=== PATIENT | female | born 1960 | race African-American/Black ===

== ENCOUNTER → 2023-07-26 | Emergency (ER) | payer OTHER ==
[~2023-07-26] MED LIST: AMOX/K CLAV 875 MG TAB ONE; CEFTRIAXONE 1000 MG/VIAL ONE; HYDROCODONE/APAP 10/325 TAB ONE; LIDOCAINE 1% MPF 2 ML AMPULE ONE; dexAMETHasone 10 MG/ML VIAL ONE
--- OUTSIDE RECORDS SUMMARY | 2023-07-26 19:27 | XMS REPORT | Clinical Summary ---
Author Name Unknown Organization [facility] [place] Address [address] [place] [address] Care Team Providers Care Film Technician Name Role Phone Ana Luisa Soares MD Primary Care Provider [phone] Allergies No known active allergies Medications Medication Sig Dispensed Refills Start Date End Date Status albuterol (VENTOLIN HFA,PROAIR HFA) 90 mcg/puff inhaler INHALE 2 PUFFS BY MOUTH EVERY 4 TO 6 HOURS NEEDED 0 09/13/2019 Active benzonatate (TESSALON) 100 mg capsule TAKE 1 TO 2 CAPSULES BY MOUTH EVERY 8 HOURS NEEDED FOR COUGH 0 07/28/2019 Active bisoprolol (ZEBETA) 5 mg tablet TAKE 1 TABLET BY MOUTH ONCE DAILY 0 02/05/2020 Active brompheniramine-pseud oephedrine-DM 2-30-10 mg/5 mL syrup TAKE 10 ML BY MOUTH EVERY 4 HOURS NEEDED NOT TO EXCEED 6 DOSES PER DAY 0 07/28/2019 Active cyclobenzaprine (FLEXERIL) 10 mg tablet TAKE 1 TABLET BY MOUTH THREE TIMES DAILY NEEDED SPASMS 0 01/08/2020 Active fluticasone propionate (FLONASE) 50 mcg/spray nasal spray USE 2 SPRAY(S) IN EACH NOSTRIL ONCE DAILY 0 09/13/2019 Active meclizine (ANTIVERT) 32 MG tablet Chew 25 mg. 0 Active Surgical History Surgery Date Site/Laterality Comments APPENDECTOMY 06/30/1981 - 06/29/1982 Removed appendix during hysterectomy HYSTERECTOMY 06/30/1981 - 06/29/1982 Had fibroid cyst, 1st stage of endometriosis Medical History Medical History Date Comments Hypertension Hyperlipidemia Not sure within the last few years but no meds given. Migraine Not sure! Not th at often. Sinusitis Not sure its bee n years. Gastric reflux Not sure maybe 2 012 History of recurrent urinary tract infection Really not sure. Endometriosis 1981 Had a hysterecto my during this time. Gout 2018 Never had any sy mptoms acidic levels was high never took med Disorder of thyroid gland I have 2 nodules on one side 3 on the other. 3-5 centimeters Anxiety Not sure off and on for years. Social History Tobacco Use Types Packs/Day Years Used Date Smoking Tobacco: Never Assessed Cigarettes 0 0 Smokeless Tobacco: Never Alcohol Use Standard Drinks/Week Comments Never 0 (1 standard drink = 0.6 oz pur e alcohol) Sex and Gender Information Value Date Recorded Sex Assigned at Not on file Gender Identity Not on file Sexual Orientation Not on file Job Start Date Occupation Industry Not on file Not on file Not on file Obstetrics History Plan of Treatment Health Maintenance Due Date Last Done Comments COVID-19 Vaccination (#1) 1960 Care Teams Film Technician Relationship Specialty Start Date End Date Ana Luisa Soares MD [address] [place] [address] PCP - General Surgical Oncology 06/27/20
[2023-07-26 21:03] LABS: SARS-COV-2 RT PCR NEGATIVE (NEGATIVE)
--- NOTE | 2023-07-26 22:15 | ER ---
Nurse's Notes [facility] Name: Helga Moseley Age: 63 yrs Sex: Female : 1960 Arrival Date: 07/26/2023 Time: 19:25 Bed 9 Private MD: Diagnosis: Allergic rhinitis, unspecified;Acute serous otitis media, right ear;Nasal congestion Presentation: 07/26 19:59 Chief complaint: Patient states: I have a really bad nasal congestion and pain on the ha1 right ear. Coronavirus screen: Vaccine status: Patient reports receiving the 2nd dose of the covid vaccine. Moderna. Ebola Screen: No symptoms or risks identified at this time. Initial Sepsis Screen: Does the patient meet any 2 criteria? No. Patient's initial sepsis screen is negative. Does the patient have a suspected source of infection? No. Patient's initial sepsis screen is negative. Risk Assessment: Do you want to hurt yourself or someone else? Patient reports no desire to harm self or others. Onset of symptoms was July 26, 2023. 19:59 Method Of Arrival: Ambulatory ha1 19:59 Acuity: ZULEYKA 3 ha1 Triage Assessment: 20:01 General: Appears uncomfortable, Behavior is cooperative. Pain: Complains of pain in ha1 right ear Pain does not radiate. Pain currently is 8 out of 10 on a pain scale. Neuro: Level of Consciousness is awake, alert, obeys commands, Oriented to person, place, time, situation. Cardiovascular: Patient's skin is warm and dry. Respiratory: Airway is patent Respiratory effort is even, unlabored, Respiratory pattern is regular, symmetrical. Historical: - Allergies: 20:01 No Known Allergies; ha1 - PMHx: 20:01 None; ha1 - Immunization history:: Adult Immunizations up to date. - Social history:: Smoking status: Patient denies any tobacco usage or history of. Screenin:13 [facility] ED Fall Risk Assessment (Adult) Score/Fall Risk Level 0 - 2 = Low Risk. Abuse as6 screen: Denies threats or abuse. Denies injuries from another. Nutritional screening: No deficits noted. Tuberculosis screening: No symptoms or risk factors identified. Assessment: 20:40 Reassessment: Pt family member came out of room asking if someone is going to come in vc1 the patients room. Asked if there was something needed and family member states, "no I just want to know if a nurse is going to come in and see her or not." Informed family member that the nurse will be there shortly. Nurse states that she has has already been in the room and swabbed the patient and a second time to bring water. We are waiting on results for the swabs. Vital Signs: 19:59 BP 160 / 92; Pulse 100; Resp 18 S; Temp 98.4(O); Pulse Ox 97% on R/A; Weight 113.4 kg; ha1 Height 5 ft. 6 in. ; 22:24 BP 148 / 70; Pulse 87; Resp 16; Pulse Ox 96% ; as6 19:59 Body Mass Index 40.35 (113.40 kg, 167.64 cm) ha1 ED Course: 19:40 Patient arrived in ED. jj6 19:58 Donte Chand MD is Attending Physician. dexter 20:01 Aaron Donaldson, MESERET is Primary Nurse. as6 20:01 Triage completed. ha1 20:13 COVID-19/FLU A+B/RSV Sent. as6 20:13 Arm band placed on. as6 20:13 Bed in low position. Call light in reach. PO fluids given. as6 22:14 Marizol Cotton MD is Referral Physician. [facility] 22:25 No provider procedures requiring assistance completed. Patient did not have IV access as6 during this emergency room visit. 22:25 Provided Education on: rx teaching. as6 Administered Medications: 22:03 Drug: Dexamethasone IM 10 mg IM once Route: IM; Site: left deltoid; as6 22:25 Follow up: Response: No adverse reaction as6 22:03 Drug: Rocephin (cefTRIAXone) IM 1 grams IM once Route: IM; Site: left ventrogluteal; as6 22:25 Follow up: Response: No adverse reaction as6 22:03 Drug: Amoxicillin-Clavulanate PO 875 mg PO once Route: PO; as6 22:25 Follow up: Response: No adverse reaction as6 22:03 Drug: [place] PO 10 mg-325 mg 1 tabs PO once Route: PO; as6 22:25 Follow up: Response: No adverse reaction as6 Medication: 20:14 VIS not applicable for this client. as6 Outcome: 22:15 Discharge ordered by . dexter 22:25 Discharged to home ambulatory, with family, as6 22:25 Condition: good 22:25 Discharge instructions given to patient, Instructed on discharge instructions, follow up and referral plans. medication usage, Demonstrated understanding of instructions, follow-up care, medications, Prescriptions given X 5 22:26 Patient left the ED. as6 Signatures: Donte Chand MD MD cha Jeffries, Jennifer jj6 Aaron Donaldson RN RN as6 Lourdes Muniz RN RN vc1 Michelle Anderson RN RN ha1 Corrections: (The following items were deleted from the chart) 20:49 20:44 Reassessment: Pt family member came out of room asking if someone is going to vc1 come in the patients room. Asked if there was something needed and family member states, "no I just want to know if a nurse is going to come in and see her or not." Informed family member that the nurse will be there shortly. Nurse states that she has has already been in vc1
--- NOTE | 2023-07-26 22:15 | EDPHYS ---
Physician Documentation [facility] Name: Helga Moseley Age: 63 yrs Sex: Female : 1960 Arrival Date: 07/26/2023 Time: 19:25 Bed 9 Private MD: ED Physician Donte Chand HPI: 07/26 22:09 This 63 yrs old Black Female presents to ER via Ambulatory with complaints of Nasal dexter Congestion. 22:09 The patient or guardian reports cough, flu symptoms, arthralgias. Onset: The dexter symptoms/episode began/occurred 3 day(s) ago. Historical: - Allergies: 20:01 No Known Allergies; ha1 - PMHx: 20:01 None; ha1 - Immunization history:: Adult Immunizations up to date. - Social history:: Smoking status: Patient denies any tobacco usage or history of. ROS: 22:10 Constitutional: Negative for fever, chills, and weight loss, Eyes: Negative for injury, dexter pain, redness, and discharge, Neck: Negative for injury, pain, and swelling, Cardiovascular: Negative for chest pain, palpitations, and edema, Respiratory: Negative for shortness of breath, cough, wheezing, and pleuritic chest pain, Abdomen/GI: Negative for abdominal pain, nausea, vomiting, diarrhea, and constipation, Back: Negative for injury and pain, : Negative for injury, bleeding, discharge, and swelling, MS/Extremity: Negative for injury and deformity, Skin: Negative for injury, rash, and discoloration, Neuro: Negative for headache, weakness, numbness, tingling, and seizure, Psych: Negative for depression, anxiety, suicide ideation, homicidal ideation, and hallucinations, Allergy/Immunology: Negative for hives, rash, and allergies, Endocrine: Negative for neck swelling, polydipsia, polyuria, polyphagia, and marked weight changes, Hematologic/Lymphatic: Negative for swollen nodes, abnormal bleeding, and unusual bruising, 22:10 Constitutional: Positive for chills, 22:10 ENT: Positive for ear pain, nasal discharge, rhinorrhea, Exam: 22:10 Constitutional: This is a well developed, well nourished patient who is awake, alert, dexter and in no acute distress. Head/Face: Normocephalic, atraumatic. Eyes: Pupils equal round and reactive to light, extra-ocular motions intact. Lids and lashes normal. Conjunctiva and sclera are non-icteric and not injected. Cornea within normal limits. Periorbital areas with no swelling, redness, or edema. Neck: Trachea midline, no thyromegaly or masses palpated, and no cervical lymphadenopathy. Supple, full range of motion without nuchal rigidity, or vertebral point tenderness. No Meningismus. Chest/axilla: Normal chest wall appearance and motion. Nontender with no deformity. No lesions are appreciated. Cardiovascular: Regular rate and rhythm with a normal S1 and S2. No gallops, murmurs, or rubs. Normal PMI, no JVD. No pulse deficits. Respiratory: Lungs have equal breath sounds bilaterally, clear to auscultation and percussion. No rales, rhonchi or wheezes noted. No increased work of breathing, no retractions or nasal flaring. Abdomen/GI: Soft, non-tender, with normal bowel sounds. No distension or tympany. No guarding or rebound. No evidence of tenderness throughout. Back: No spinal tenderness. No costovertebral tenderness. Full range of motion. Skin: Warm, dry with normal turgor. Normal color with no rashes, no lesions, and no evidence of cellulitis. MS/ Extremity: Pulses equal, no cyanosis. Neurovascular intact. Full, normal range of motion. Neuro: Awake and alert, GCS 15, oriented to person, place, time, and situation. Cranial nerves II-XII grossly intact. Motor strength 5/5 in all extremities. Sensory grossly intact. Cerebellar exam normal. Normal gait. Psych: Awake, alert, with orientation to person, place and time. Behavior, mood, and affect are within normal limits. 22:10 ENT: TM's: erythema, that is moderate, on the right, Nose: Nasal mucosa: edematous, erythematous, Turbinates: are swollen bilaterally, Mouth: is normal, no abscess, no drooling, no injury, no laceration, no lesion(s), (-) tongue elevation (-) trismus no ulcerations, no gum abnomalities, no lip abnormalities, no mucosal abnormalities, no tongue abnormalities, Oral mucosa: moist, Gums: normal with healthy appearance, Posterior pharynx: is normal, Vital Signs: 19:59 BP 160 / 92; Pulse 100; Resp 18 S; Temp 98.4(O); Pulse Ox 97% on R/A; Weight 113.4 kg; ha1 Height 5 ft. 6 in. ; 22:24 BP 148 / 70; Pulse 87; Resp 16; Pulse Ox 96% ; as6 19:59 Body Mass Index 40.35 (113.40 kg, 167.64 cm) ha1 MDM: 19:58 Patient medically screened. dexter 22:12 Differential diagnosis: sinusitis, obstructed airway, tracheal injury, bronchitis, flu, dexter URI. Antibiotic administration: The patient is discharged and will get outpatient antibiotics, Amoxicillin. Differential Diagnosis: Obstructed Airway Bronchitis Influenza Upper Respiratory Infection Sinusitis Allergic Rhinitis Viral Syndrome. Data reviewed: vital signs, nurses notes, lab test result(s). Consideration of Admission/Observation Escalation of care including admission/observation considered. I considered the following discharge prescriptions or medication management in the emergency department Medications were administered in the Emergency Department. See MAR. Test considered but Not performed: Labs: NO LABS. Historians other than the Patient: Spouse/Significant Other: WELL INFORMED. 07/26 19:59 Order name: COVID-19/FLU A+B/RSV; Complete Time: 21:28 dexter Administered Medications: 22:03 Drug: Dexamethasone IM 10 mg IM once Route: IM; Site: left deltoid; as6 22:25 Follow up: Response: No adverse reaction as6 22:03 Drug: Rocephin (cefTRIAXone) IM 1 grams IM once Route: IM; Site: left ventrogluteal; as6 22:25 Follow up: Response: No adverse reaction as6 22:03 Drug: Amoxicillin-Clavulanate PO 875 mg PO once Route: PO; as6 22:25 Follow up: Response: No adverse reaction as6 22:03 Drug: [place] PO 10 mg-325 mg 1 tabs PO once Route: PO; as6 22:25 Follow up: Response: No adverse reaction as6 Disposition Summary: 07/26/23 22:15 Discharge Ordered Notes: Location: Home dexter Problem: new dexter Symptoms: have improved dexter Condition: Stable dexter Diagnosis - Allergic rhinitis, unspecified dexter - Acute serous otitis media, right ear dexter - Nasal congestion dexter Followup: dexter - With: Private Physician - When: 2 - 3 days - Reason: Recheck today's complaints, Continuance of care, Re-evaluation by your physician Followup: dexter - With: Marizol Cotton MD - When: 2 - 3 days - Reason: Recheck today's complaints, Re-evaluation by your physician Discharge Instructions: - Discharge Summary Sheet [facility] - Otitis Media, Adult [facility] - Allergic Rhinitis, Adult [facility] - Otitis Media, Adult, [id number] dexter - Allergic Rhinitis, Adult, [id number] [facility] Forms: - Medication Reconciliation Form [facility] - Thank You Letter [facility] - Antibiotic Education [facility] - Prescription Opioid Use [facility] - Patient Portal Instructions [facility] - Leadership Thank You Letter [facility] Prescriptions: - Flonase Allergy Relief 50 mcg/actuation Nasal spray, suspension - spray 2 spray INTRANASAL route daily administer into each nostril; 1 unit; [facility] Refills: 0, Product Selection Permitted - acetaminophen-codeine 300-30 mg Oral tablet - take 2 tablet ORAL route every 6 hours; 20 tablet; Refills: 0, Product [facility] Selection Permitted - dexamethasone 2 mg Oral tablet - take 1 tablet ORAL route 2 times per day at 11 PM; 8 tablet; Refills: 0, [facility] Product Selection Permitted - Theresa-D 12 Hour 60-120 mg Oral Tablet Sustained Release 12 hr - take 1 tablet ORAL route every 12 hours As needed; 30 tablet; Refills: 0, [facility] Product Selection Permitted - Augmentin 875-125 mg Oral Tablet - take 1 tablet ORAL route every 12 hours for 10 days; 20 tablet; Refills: 0, [facility] Product Selection Permitted Signatures: Dispatcher [employer] Donte Diana MD MD cha Slawson, Ashby, RN RN as6 Michelle Anderson RN RN ha1
[2023-07-27 00:02] VITALS: BP 148/70; TEMP 98.4; O2SAT 96
== END ==
LOC: ER 19:25
DX: J30.9 Allergic rhinitis, unspecified (principal); H65.01 Acute serous otitis media, right ear; R09.81 Nasal congestion; H92.01 Otalgia, right ear; R05.9 Cough, unspecified; M25.50 Pain in unspecified joint; Z11.52 Encounter for screening for COVID-19
CPT/HCPCS: 0241U; J1100; J0696

== ENCOUNTER 2024-10-21 08:08 | Emergency (ER) | payer OTHER ==
--- OUTSIDE RECORDS SUMMARY | 2024-10-21 08:12 | XMS REPORT | Clinical Summary ---
Author Name Unknown Organization [facility] [place] Address [address] [place] [address] Care Team Providers Care Scientific Research Associate Name Role Phone Ana Luisa Soares MD Primary Care Provider [phone] Allergies No known active allergies Medications * This document contains information received from the source organization and may not represent a complete record from that organization. albuterol (VENTOLIN HFA,PROAIR HFA) 90 mcg/puff inhaler INHALE 2 PUFFS BY MOUTH EVERY 4 TO 6 HOURS NEEDED 09/13/2019 Active benzonatate (TESSALON) 100 mg capsule TAKE 1 TO 2 CAPSULES BY MOUTH EVERY 8 HOURS NEEDED FOR COUGH 07/28/2019 Active bisoprolol (ZEBETA) 5 mg tablet TAKE 1 TABLET BY MOUTH ONCE DAILY 02/05/2020 Active brompheniramine -pseudoephedrin e-DM 2-30-10 mg/5 mL syrup TAKE 10 ML BY MOUTH EVERY 4 HOURS NEEDED NOT TO EXCEED 6 DOSES PER DAY 07/28/2019 Active cyclobenzaprine (FLEXERIL) 10 mg tablet TAKE 1 TABLET BY MOUTH THREE TIMES DAILY NEEDED SPASMS 01/08/2020 Active fluticasone propionate (FLONASE) 50 mcg/spray nasal spray USE 2 SPRAY(S) IN EACH NOSTRIL ONCE DAILY 09/13/2019 Active meclizine (ANTIVERT) 32 MG tablet Chew 25 mg. Active Surgical History Surgery Date Site/Laterality Comments [...] Used Date Smoking Tobacco: Never Assessed Cigarettes Smokeless Tobacco: Never Alcohol Use Standard Drinks/Week Comments Never 0 (1 standard drink = 0.6 oz pur e alcohol) Comments Unknown Sex and Gender Information Value Date Recorded Sex Assigned at Not on file Legal Sex Female 9:47 AM WHEEL [employer] Gender Identity Not on file Sexual Orientation Not on file Obstetrics History Plan of Treatment Health Maintenance Due Date Last Done Comments Pneumococcal Vaccine: 50+ Years (1 of 1 - PCV) 008 COVID-19 Vaccine ( - 2023- season) 2024 Influenza Vaccine (#1) 2024 Care Teams Scientific Research Associate Relationship Specialty Start Date End Date Ana Luisa Soares MD [address] [place] [address] [email or web address] PCP - General Surgical Oncology 06/27/20
[2024-10-21] MEDS ORDERED: ACETAMINOPHEN 500 MG TAB ONE (08:58)
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
--- NOTE | 2024-10-21 09:02 | EDPHYS ---
Physician Documentation [facility] Name: Helga Moseley Age: 64 yrs Sex: Female : 1960 Arrival Date: 10/21/2024 Time: 08:08 Bed 12 Private MD: ED Physician Donte Chand HPI: 10/21 08:25 This 64 yrs old Black Female presents to ER via Unassigned with complaints of Head dexter Injury-Adult. 08:25 The patient or guardian reports tenderness. The complaints affect the forehead. Context dexter of injury: The problem was sustained at work. Onset: The symptoms/episode began/occurred yesterday. Associated signs and symptoms: The patient has no apparent associated signs or symptoms, Loss of consciousness: This patient did not experience any loss of consciousness. Pertinent positives: headache. Severity of symptoms: At their worst the symptoms were moderate. The patient has not experienced similar symptoms in the past. Historical: - Allergies: 08:41 No Known Allergies; ss - Immunization history:: Client reports receiving the 2nd dose of the Covid vaccine. - Infectious Disease History:: Denies. - Family history:: not pertinent. - Social history:: Smoking status: Patient denies any tobacco usage or history of. ROS: 08:25 Constitutional: Negative for fever, chills, and weight loss, Eyes: Negative for injury, dexter pain, redness, and discharge, ENT: Negative for injury, pain, and discharge, Neck: Negative for injury, pain, and swelling, Cardiovascular: Negative for chest pain, palpitations, and edema, Respiratory: Negative for shortness of breath, cough, wheezing, and pleuritic chest pain, Abdomen/GI: Negative for abdominal pain, nausea, vomiting, diarrhea, and constipation, Back: Negative for injury and pain, : Negative for injury, bleeding, discharge, and swelling, MS/Extremity: Negative for injury and deformity, Skin: Negative for injury, rash, and discoloration, Psych: Negative for depression, anxiety, suicide ideation, homicidal ideation, and hallucinations, Allergy/Immunology: Negative for hives, rash, and allergies, Endocrine: Negative for neck swelling, polydipsia, polyuria, polyphagia, and marked weight changes, Hematologic/Lymphatic: Negative for swollen nodes, abnormal bleeding, and unusual bruising, 08:25 Neuro: Positive for headache, Exam: 08:25 Constitutional: This is a well developed, well nourished patient who is awake, alert, dexter and in no acute distress. Head/Face: Normocephalic, atraumatic. Eyes: Pupils equal round and reactive to light, extra-ocular motions intact. Lids and lashes normal. Conjunctiva and sclera are non-icteric and not injected. Cornea within normal limits. Periorbital areas with no swelling, redness, or edema. ENT: Nares patent. No nasal discharge, no septal abnormalities noted. Tympanic membranes are normal and external auditory canals are clear. Oropharynx with no redness, swelling, or masses, exudates, or evidence of obstruction, uvula midline. Mucous membranes moist. Neck: Trachea midline, no thyromegaly or masses palpated, and no cervical lymphadenopathy. Supple, full range of motion without nuchal rigidity, or vertebral point tenderness. No Meningismus. Chest/axilla: Normal chest wall appearance and motion. Nontender with no deformity. No lesions are appreciated. Cardiovascular: Regular rate and rhythm with a normal S1 and S2. No gallops, murmurs, or rubs. Normal PMI, no JVD. No pulse deficits. Respiratory: Lungs have equal breath sounds bilaterally, clear to auscultation and percussion. No rales, rhonchi or wheezes noted. No increased work of breathing, no retractions or nasal flaring. Abdomen/GI: Soft, non-tender, with normal bowel sounds. No distension or tympany. No guarding or rebound. No evidence of tenderness throughout. Back: No spinal tenderness. No costovertebral tenderness. Full range of motion. Skin: Warm, dry with normal turgor. Normal color with no rashes, no lesions, and no evidence of cellulitis. MS/ Extremity: Pulses equal, no cyanosis. Neurovascular intact. Full, normal range of motion., bilateral aka Neuro: Awake and alert, GCS 15, oriented to person, place, time, and situation. Cranial nerves II-XII grossly intact. Motor strength 5/5 in all extremities. Sensory grossly intact. Cerebellar exam normal. Normal gait. Psych: Awake, alert, with orientation to person, place and time. Behavior, mood, and affect are within normal limits. 08:25 Neck: ROM/movement: is normal, no acute changes, pain, is not appreciated, limited range of motion, is not appreciated, Meningeal signs: are not present, nuchal rigidity, is not appreciated, Lymph nodes: no appreciated lymphadenopathy, Vital Signs: 08:36 BP 156 / 106; Pulse 86; Resp 15; Temp 98.1(O); Pulse Ox 98% on R/A; Weight 97.52 kg; ss Height 5 ft. 6 in. ; Pain 9/10; 08:36 Body Mass Index 34.70 (97.52 kg, 167.64 cm) ss 08:36 Pain Scale: Adult ss León Coma Score: 08:25 Eye Response: spontaneous(4). Motor Response: obeys commands(6). Verbal Response: dexter oriented(5). Total: 15. 08:27 Eye Response: spontaneous(4). Motor Response: obeys commands(6). Verbal Response: dexter oriented(5). Total: 15. MDM: 08:17 Medical Screening Exam initiated dexter 08:27 Differential diagnosis: Contusion of Hematoma on Intracranial bleed- Concussion without dexter LOC. cerebral contusion. Data reviewed: vital signs, nurses notes, radiologic studies, CT scan. Consideration of Admission/Observation Escalation of care including admission/observation considered. I considered the following discharge prescriptions or medication management in the emergency department Medications were administered in the Emergency Department. See MAR. Independent interpretation of the following test(s) in the Emergency Department CT Scan: My interpretation is ct head and c spine. 10/21 08:17 Order name: CT Head C Spine dexter Administered Medications: 09:05 Drug: Acetaminophen PO 1000 mg PO once Route: PO; 09:15 Follow up: Response: No adverse reaction; Medication Administered at Departure Disposition Summary: 10/21/24 09:02 Discharge Ordered Notes: Location: Home dexter Problem: new dexter Symptoms: have improved dexter Condition: Stable dexter Diagnosis - Unspecified injury of head, initial encounter - contusion dexter Followup: dexter - With: Private Physician - When: 2 - 3 days - Reason: Recheck today's complaints, Continuance of care, Re-evaluation by your physician Discharge Instructions: - Discharge Summary Sheet dexter - Head Injury, Adult dexter - Head Injury, Adult, [id number] dexter Forms: - Medication Reconciliation Form dexter - Antibiotic Education dexter - Prescription Opioid Use dexter - Patient Portal Instructions dexter - Leadership Thank You Letter dexter - Work release form Prescriptions: - Ibuprofen 600 mg Oral tablet - take 1 tablet ORAL route every 6 hours As needed take with food; 20 tablet; [facility] Refills: 0, Product Selection Permitted Signatures: Dispatcher [employer] Donte Diana MD MD cha Blanchard, Shelby, RN RN ss
--- NOTE | 2024-10-21 09:10 | RAD REPORT ---
EXAMINATION: CT HEAD WITHOUT CONTRAST CT CERVICAL SPINE WITHOUT CONTRAST CLINICAL INDICATION: Head and neck injury status post fall. Head and neck pain TECHNIQUE: Axial CT images from the skull base to the vertex without intravenous contrast. Axial CT i mages through the cervical spine were obtained without intravenous contrast. Sagittal and coronal reformatted images were created from the data set. Coronal and sagittal reformatted images were creat ed from the data set. One or more of the following dose reduction techniques were used: Automated exposure control, adjustment of the mA and/or kV according to patient size, and/or iterative reconstr uction. Unless otherwise specified, incidental findings do not require dedicated imaging follow-up. [id number]. Comparison: none FINDINGS: An intracranial bleed is not seen. Ventricles are normal in caliber. No significant hypodensity within the brain No extra-axial fluid collection. Empty sella turcica No fluid within the sinuses/mastoids 7 mm left frontal bone osteoma. Lucency with a sclerotic border right lamina of C6. Right pedicle of C6 is absent. 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 If the patient continues to have symptoms to suggest acute [employer]/spinal pathology then MRI would be re commended
[2024-10-21 09:28] VITALS: BP 156/106; TEMP 98.1; O2SAT 98
== END 2024-10-21 09:23 | disposition home or self-care (01) ==
LOC: ER 08:08
DX: S00.83XA Contusion of other part of head, initial encounter (principal); W50.0XXA Accidental hit or strike by another person, initial encounter; Y99.0 Civilian activity done for income or pay
CPT/HCPCS: 70450; 72125